=== PATIENT | male | born 1950 | race Caucasian/White ===

== ENCOUNTER → 2020-04-30 | Outpatient (CLI) | payer BC ==
--- NOTE | 2020-04-30 11:36 | CT ---
Study: CT Arthrogram of the Right Shoulder. Indication: ROTATOR CUFF TEAR RIGHT SHOULDER Technique: Axial CT of the right shoulder was performed after intra-articular injection of contrast. Coronal and sagittal reformats performed. Please see the accompanying report regarding the procedural portion of this exam. This exam was performed according to our departmental dose-optimization program, which includes automated exposure control, adjustment of the mA and/or kV according to patient size and/or use of iterative reconstruction technique. Comparison: None. Findings: Severe hypertrophic AC joint osteoarthritis. Type II acromion with moderate lateral downsloping. Moderate volume subacromial/subdeltoid bursal fluid/contrast. Supraspinatus and infraspinatus tendinosis with irregular effectively full-thickness tearing of the anterior two thirds supraspinatus tendon insertion. Tear defect measures 12 mm AP by 11 mm transverse. Mild contrast-filled interstitial fissuring throughout the supraspinatus critical zone and myotendinous junction. Mild atrophy and grade 1 fatty infiltration rotator cuff musculature. No rupture of the long head biceps tendon. Circumferential labral truncation/degeneration. Mild grade 4 chondrosis and subchondral cystic change inferior margin of the glenohumeral joint with additional grade 2 and 3 chondral loss throughout. Small joint line osteophytes. No acute fracture. Impression: Irregular full-thickness tearing anterior margin supraspinatus tendon insertion. Additional interstitial fissuring of the infraspinatus critical zone and myotendinous junction noted. Mild atrophy and grade 1 fatty infiltration rotator cuff musculature. Circumferential labral truncation and degeneration. Mild/moderate glenohumeral joint osteoarthritis. Severe AC joint osteoarthritis with lateral downsloping of the acromion. Electronically signed by: Yunier Ballard MD 04/30/2020 11:34 AM CDT
--- NOTE | 2020-04-30 15:16 | RAD ---
EXAM DESCRIPTION: Arthrogram Shoulder Right: RF CLINICAL HISTORY: ROTATOR CUFF TEAR RIGHT SHOULDER COMPARISON: Post-arthrogram CT scan of the right shoulder same date. TECHNIQUE: The procedure was performed by Dr. Arnold; explained to the patient with risks and benefits. The patient gave verbal and written consent. Contrast mixture of 10 mL non-ionic 300 contrast and 10 mL of sterile normal saline was prepared. One AP puff ironer image of the right shoulder. Patient supine on the fluoroscopic table with right shoulder in external rotation. The anterior mid superior right glenohumeral joint was localized by fluoroscopy. The skin was marked, then prepped and draped in a sterile fashion. Intradermal, subcutaneous and intramuscular 1% Xylocaine. was given for topical anesthesia. A 3 cm, 25-gauge needle was introduced into the anterior superior right glenohumeral joint capsule under fluoroscopic visualization. A test injection of 2 cc of non-ionic 300 was performed under fluoroscopy. Additional 8 CC of contrast mixture was then injected under fluoroscopy. The patient tolerated the procedure well. Active exercise. Patient was transferred to the CT suite for spiral-axial and reconstruction imaging. No immediate complications. 1 fluoroscopic guided AP image of the right shoulder in external rotation, recorded for the patient's permanent medical record. Total fluoroscopic time was 1.4 minutes. DAP: 4.49 Gy-cm2. IMPRESSION: Arthrosis in the AC joint, right glenohumeral joint, and degenerative changes of the greater tuberosity. Successful, fluoroscopic-guided contrast saline arthrogram of the right shoulder, prior to post arthrogram CT scan of the right shoulder. Electronically signed by: Marvel Arnold MD 04/30/2020 3:14 PM CDT
== END ==
LOC: CT 09:00
DX: M75.101 Unspecified rotator cuff tear or rupture of right shoulder, not specified as traumatic (principal); S43.431A Superior glenoid labrum lesion of right shoulder, initial encounter; M19.011 Primary osteoarthritis, right shoulder; M62.511 Muscle wasting and atrophy, not elsewhere classified, right shoulder; M62.89 Other specified disorders of muscle

== ENCOUNTER → 2020-06-14 | Outpatient (CLI) | payer BC ==
--- NOTE | 2020-06-15 09:08 | US ---
EXAM DESCRIPTION: Carotid Duplex: ULTRASOUND. CLINICAL HISTORY: 70 years Male OCCLUSION AND STENOSIS OF CAROTID ARTERY COMPARISON: None. TECHNIQUE: Transcutaneous scanning utilizing brock-scale and Doppler modes to evaluate the bilateral carotid systems and vertebral arteries. Percentage of diameter of stenosis or no stenosis recorded will be based upon NASCET criteria. FINDINGS: Peak systolic/end diastolic (CM-Sec) CCA Right 80/27 Left 89/26. ICA Right proximal 71/17, mid 67/20. Left proximal 60/18, mid 63/26. Vertebral Right 50/12 Left 43/14. ECA (PS Only) Right 114 left 82. ICA/CCA peak systolic ratio: Right 0.9 Left 0.7 ICA/CCA end diastolic ratio: Right 0.6 Left 1.0 Vertebral arteries: antegrade flow. Comments Comments: Atherosclerotic calcification bilateral common carotid bulbs and ICAs. Spectral broadening proximal and mid right ICA. Right CCA bulb: Area stenosis 24% and diameter stenosis 21%. Right proximal ICA: area stenosis 69% and diameter stenosis 55%. Spectral broadening throughout the left ICA. Left CCA bulb: Area stenosis 47% and diameter stenosis 43%. Left proximal ICA: Area stenosis 46% and diameter stenosis 40% IMPRESSION: 1. Doppler evaluation of the bilateral carotid systems and vertebral arteries shows no hemodynamically significant stenoses (less than 70%). However, area stenosis of the right proximal ICA is almost 70% with diameter stenosis less than 60%. Consider MRA or CTA of carotid and vertebral vessels. 2. Moderate amount of plaque in the carotid arteries bilaterally. Bilateral vertebral arteries showed antegrade-cephalad flow. Electronically signed by: Marvel Arnold MD 06/15/2020 9:07 AM CDT
== END ==
LOC: US 15:29
PROVIDERS: ATTEND Family Medicine
DX: I65.23 Occlusion and stenosis of bilateral carotid arteries (principal); I77.89 Other specified disorders of arteries and arterioles

== ENCOUNTER → 2020-09-03 | Outpatient (CLI) | payer BC ==
--- NOTE | 2020-09-06 08:02 | CT ---
EXAM DESCRIPTION: CTA Neck CLINICAL HISTORY: CAROTID ARTERY STENOSIS COMPARISON: June 14, 2020 TECHNIQUE: Postcontrast CTA images of the neck are obtained with 3-D MIP reconstructed images of the arterial vasculature. This exam was performed according to our departmental dose-optimization program, which includes automated exposure control, adjustment of the mA and/or kV according to patient size and/or use of iterative reconstruction technique . FINDINGS: Scattered calcified plaque of the thoracic aortic arch and involving the normal origin of the great vessels of the aorta are seen without high-grade or flow limiting stenosis. Streak artifact from dense contrast in the left innominate vein partly obscures visualization. Dual-lead left subclavian transvenous cardiac pacemaker is seen. No subclavian artery stenosis. Diffuse intimal thickening and scattered calcified and noncalcified plaque of the right common carotid artery seen. Circumferential heterogeneous irregular calcified and noncalcified plaque of the carotid bulb to proximal internal carotid artery is seen contributing to 25% stenosis by NASCET criteria in the carotid bulb. The remainder of the right cervical ICA is patent. Moderate calcified plaque of the intracranial carotid artery seen with mild stenosis. Scattered calcified and noncalcified plaque throughout the left common carotid artery without flow-limiting stenosis. Moderate eccentric, irregular calcified plaque of the left carotid bulb to proximal internal carotid artery seen with less than 10% stenosis by NASCET criteria. Remainder of the cervical ICA is unremarkable. Moderate calcified plaque of the intracranial carotid arteries is seen with at least mild stenosis of the mid to superior internal carotid artery. Left vertebral artery slightly more dominant. No significant calcified plaque of the vertebral arteries. Small vertebral arteries at the skull base is seen with small basilar artery. Prominent posterior communicating arteries are seen bilaterally. The neck soft tissues are unremarkable. Lung apices are unremarkable. Solid interbody fusion at C5-6 with facet arthrodesis. Severe disc disease at C4-5 and C6-7 with multilevel facet arthropathy of the cervical spine most significant on the left at C3-4. IMPRESSION: Moderate to severe right and mild to moderate left carotid artery disease mainly in the common carotid artery to carotid bulb and proximal ICA. 25% stenosis by NASCET criteria seen in the right ICA with less than 10% stenosis on the left. Moderate calcified plaque of the cavernous supraclinoid ICAs seen bilaterally contributing to at least mild stenosis. Small vertebral arteries and basilar artery are seen. Electronically signed by: eJb Bryant MD 09/06/2020 8:00 AM CDT
== END ==
LOC: CT 12:59
PROVIDERS: ATTEND Family Medicine
DX: I65.23 Occlusion and stenosis of bilateral carotid arteries (principal); I77.89 Other specified disorders of arteries and arterioles